=== PATIENT | female | born 1960 | race Caucasian/White ===

== ENCOUNTER 2019-08-29 15:58 | Inpatient (IN) | payer OTHER ==
[~2019-08-29] VITALS: Ht 157.5 cm; Wt 95.1 kg
[2019-08-29] MEDS ORDERED: IV NORMAL SALINE 1,000ML 1,000 ML IV SCH (16:19)
[2019-08-29 17:02] LABS: BASO # 0.2 x10^3/uL (0.0-0.2); BASO % 1 % (0-3); EOS # 0.1 x10^3/uL (0.0-0.7); EOS % 0 % (0-3); HEMATOCRIT 42.7 % (36.0-47.0); HEMOGLOBIN 14.5 g/dL (12.0-15.5); LYMPH # 1.7 x10^3/uL (1.0-4.8); LYMPH % 8 % (24-48); MEAN CORPUSCULAR HEMOGLOBIN 29 pg (25-35); MEAN CORPUSCULAR HGB CONC 34 g/dL (31-37); MEAN CORPUSCULAR VOLUME 87 fL (79-100); MONO # 1.4 x10^3/uL (0.0-1.1); MONO % 6 % (0-9); NEUT # 19.4 x10^3uL (1.8-7.7); NEUT % 85 % (31-73); PLATELET COUNT 354 x10^3/uL (140-400); RED BLOOD COUNT 4.93 x10^6/uL (3.50-5.40); RED CELL DISTRIBUTION WIDTH 15.1 % (11.5-14.5); WHITE BLOOD COUNT 22.7 x10^3/uL (4.0-11.0)
--- NOTE | 2019-08-29 17:05 | RAD ---
Exam: Acute abdominal series INDICATION: Abdominal pain, constipation TECHNIQUE: Frontal view of the chest with upright and supine views of the abdomen Comparisons: None FINDINGS: The cardiomediastinal silhouette and pulmonary vessels are within normal limits. The lung and pleural spaces are clear. Air and stool noted throughout the colon to level the rectum in a nonobstructive bowel gas pattern. No suspicious masses or calcifications. Visualized osseous structures are unremarkable. IMPRESSION: 1. No acute cardiopulmonary process. 2. Nonobstructive bowel gas pattern. Electronically signed by: Macy Moore MD (08/29/2019 5:03 PM) [id number]
--- NOTE | 2019-08-29 17:27 | PHYS DOC ---
Past History Past Medical History: Asthma, Diabetes, Hypertension (JOSEPH LOPEZ DO) Past Medical History: Anxiety, Arthritis, Constipation, Diabetes, Sciatica (JOHAN STREETER MD) Past Surgical History: No Surgical History (JOSEPH LOPEZ DO) Past Surgical History: Cervical Fusion, Hysterectomy (JOHAN STREETER MD) Alcohol Use: None Drug Use: None (JOSEPH LOPEZ DO) General Adult EDM: Chief Complaint: CONTISPATION HPI: HPI: Patient is a 59 year old female who presents for evaluation of left lower abdominal pain. She is concerned she may have been constipated several days ago but then started developing some loose nonbloody stools since about 12 PM today. Patient was moderately uncomfortable on arrival. There is no reported nausea vomiting or fever and chills. Patient did later states she has been on prednisone and has multiple chronic pain episodes as well as a "pinched nerve" in her back (JOSEPH LOPEZ DO) HPI: ".. I ve been so constipated... there is a hard ball down there... It will just not come out... this been going on the last three days.. "..." I bite area is still sore I do not want to even try go the bathroom anymore..." Patient is a 59-year-old female with history of lower abdomen pain, constipation, obstipation, and generalized abdomen distention. Patient does have a history of previous episodes of constipation. Patient has been taking fiber mid meds however has not increased her fluid intake. Patient denies any intake of bad food. Patient denies any history of immunosuppression. Patient denies any recent travel outside the [place] area. Patient normally follows with Dr. Rema Thomas. Pt. recent injury to lower lumbar and was started on some steriods and Tramadol.Lt. leg sciatica. Patient has had previous episodes of constipation but not quite as severe as current presentation. Patient denies any specific ill contacts. Patient denies any history of colitis. (JOHAN STREETER MD) Review of Systems: Review of Systems: Constitutional: Denies fever or chills Eyes: Denies change in visual acuity HENT: Denies nasal congestion or sore throat Respiratory: Denies cough or shortness of breath Cardiovascular: Denies chest pain or edema GI: has abdominal pain, no nausea, vomiting, bloody stools, pt has diarrhea : Denies dysuria Musculoskeletal: chronic back pain, no joint pain Integument: Denies rash Neurologic: Denies headache, focal weakness or sensory changes Endocrine: Denies polyuria or polydipsia Lymphatic: Denies swollen glands Psychiatric: Denies depression or anxiety (JOSEPH LOPEZ DO) Heart Score: Risk Factors: Risk Factors: DM, Current or recent (<one month) smoker, HTN, HLP, family history of CAD, obesity. Risk Scores: Score 0 - 3: 2.5% MACE over next 6 weeks - Discharge Home Score 4 - 6: 20.3% MACE over next 6 weeks - Admit for Clinical Observation Score 7 - 10: 72.7% MACE over next 6 weeks - Early Invasive Strategies (JOSEPH LOPEZ DO) HEART Score for Chest Pain: HEART Score for Chest Pain Response (Comments) Value History Moderately Suspicious 1 ECG Nonspecific Repolarizatio 1 Age >45 - < 65 1 Risk Factors 1 or 2 Risk Factors 1 Troponin < Normal Limit 0 Total 4 Family History: Family History: Noncontributory to presentation (JOHAN STREETER MD) Current Medications: Current Meds: Current Medications Medications (Trade) Dose Ordered Sig/Trinity Start Time Stop Time Status Last Admin Dose Admin Sodium Chloride 1,000 ml @ 1,000 mls/hr Q1H 08/29/19 16:19 08/29/19 17:18 DC 08/29/19 17:09 1,000 MLS/HR (JOSEPH LOPEZ DO) Current Meds: See nursing for home medications (JOHAN STERETER MD) Allergies: Allergies: Allergies Coded Allergies Type Severity Reaction Last Updated Verified morphine Allergy Unknown 08/29/19 Yes (JOSEPH LOPEZ DO) Allergies: Morphine causes itching (JOHAN STREETER MD) Physical Exam: PE: Constitutional: Well developed, well nourished, moderate istress, non-toxic appearance. [] HENT: Normocephalic, atraumatic, bilateral external ears normal, oropharynx moist, no oral exudates. [] Eyes: PERRL, EOMI, conjunctiva normal, no discharge. [] Neck: Normal range of motion, no tenderness, supple. [] Cardiovascular:Heart rate regular rhythm, no murmur [] Lungs & Thorax: Bilateral breath sounds clear to auscultation [] Abdomen: Bowel sounds normal, soft, tender left lower abdomen to palpation, no pulsatile masses. [] Skin: Warm, dry, no erythema, no rash. [] Back: No tenderness, no CVA tenderness. [] Extremities: No tenderness, no cyanosis, ROM intact, no edema. [] Neurologic: Alert and oriented X 3, normal motor function, normal sensory function, no focal deficits noted. [] Psychologic: Affect normal, judgement normal, mood normal. rectal: Tender, patient would not tolerate full finger insertion, brown-colored loose stool noted.[] (JOSEPH LOPEZ DO) PE: Re-exam after shift change. General-appears to be very uncomfortable HEENT-pupils equal reactive to light. Extraocular muscles intact. Wearing glasses. Old scar. Chest-breath sounds equal at apex. Few scattered wheezes. Cardiovascular-tachycardia, PMI slightly to the left. Abdomen-very distended. Lower pelvic pain. Old surgical scars. Rebound to the lower abdomen. Rectal area somewhat inflamed. Has extremely hard impaction. No gross blood. Extremities-arthritic changes. Moves all extremities on request. Does have findings of pain in left leg on straight leg lift. Pain appears to follow the left sciatic nerve. Back.-Muscle spasm on left lumbar muscle groups. No midline tenderness. Does have pain along the left sciatic nerve into the gluteal area. Neuro-patient moves all extremities on request. Has distal sensory. (JOHAN STREETER MD) Current Patient Data: Labs: Laboratory Tests Test 08/29/19 16:40 White Blood Count 22.7 x10^3/uL (4.0-11.0) H Red Blood Count 4.93 x10^6/uL (3.50-5.40) Hemoglobin 14.5 g/dL (12.0-15.5) Hematocrit 42.7 % (36.0-47.0) Mean Corpuscular Volume 87 fL (79-100) Mean Corpuscular Hemoglobin 29 pg (25-35) Mean Corpuscular Hemoglobin Concent 34 g/dL (31-37) Red Cell Distribution Width 15.1 % (11.5-14.5) H Platelet Count 354 x10^3/uL (140-400) Neutrophils (%) (Auto) 85 % (31-73) H Lymphocytes (%) (Auto) 8 % (24-48) L Monocytes (%) (Auto) 6 % (0-9) Eosinophils (%) (Auto) 0 % (0-3) Basophils (%) (Auto) 1 % (0-3) Neutrophils # (Auto) 19.4 x10^3uL (1.8-7.7) H Lymphocytes # (Auto) 1.7 x10^3/uL (1.0-4.8) Monocytes # (Auto) 1.4 x10^3/uL (0.0-1.1) H Eosinophils # (Auto) 0.1 x10^3/uL (0.0-0.7) Basophils # (Auto) 0.2 x10^3/uL (0.0-0.2) Platelet Estimate Pending Vital Signs: Vital Signs Date Time Temp Pulse Resp B/P (MAP) Pulse Ox O2 Delivery O2 Flow Rate FiO2 08/29/19 16:15 97.8 116 20 163/71 (101) 98 Room Air (JOSEPH LOPEZ DO) EKG: EKG: [] (JOSEPH LOPEZ DO) EKG: My interpretation EKG shows a sinus tachycardia at 104 bpm. There is some left axis deviation. There is findings of a fascicular block. No findings of acute STEMI with contralateral changes. (JOHAN STREETER MD) Radiology/Procedures: Radiology/Procedures: [address] [address] IMAGING REPORT Signed PATIENT: VLAD HART ACCOUNT: [id number] : 1960 LOCATION: ER AGE: 59 SEX: F EXAM STATUS: REG ER ORD. PHYSICIAN: JOSEPH LOPEZ DO REASON: abd pain, constipation PROCEDURE: ACUTE ABDOMEN SERIES Exam: Acute abdominal series INDICATION: Abdominal pain, constipation TECHNIQUE: Frontal view of the chest with upright and supine views of the abdomen Comparisons: None FINDINGS: The cardiomediastinal silhouette and pulmonary vessels are within normal limits. The lung and pleural spaces are clear. Air and stool noted throughout the colon to level the rectum in a nonobstructive bowel gas pattern. No suspicious masses or calcifications. Visualized osseous structures are unremarkable. IMPRESSION: 1. No acute cardiopulmonary process. 2. Nonobstructive bowel gas pattern. Electronically signed by: Macy Kessler MD (08/29/2019 5:03 PM) [id number] DICTATED AND SIGNED BY: MACY KESSLER MD DATE: 08/29/19 [id number] CC: KANWAL THOMAS DO; JOSEPH LOPEZ DO ~ [] (JOSEPH LOPEZ DO) Radiology/Procedures: [address] [address] IMAGING REPORT Signed PATIENT: VLAD HART ACCOUNT: [id number] : 1960 LOCATION: ER AGE: 59 SEX: F EXAM STATUS: REG ER ORD. PHYSICIAN: JOSEPH LOPEZ DO REASON: abdominal pain left lower quadrant, luekocytosis PROCEDURE: CT ABD PELV W/ORAL&IV CONTRAST Exam: CT of abdomen and pelvis with contrast INDICATION: Abdominal pain, left lower quadrant, leukocytosis TECHNIQUE: Sequential axial images through the abdomen and pelvis obtained following the administration of 75 mL of Omni 300 IV contrast. Sagittal and coronal reformatted images were reconstructed from the axial data and reviewed. Comparisons: Radiograph same day FINDINGS: Heart size is normal. No pericardial effusion. Visualized lung bases are clear. No pleural effusion. Liver, spleen, pancreas and adrenals are unremarkable. Gallbladder is mildly distended. Kidneys demonstrate symmetric enhancement. No perinephric inflammation or hydronephrosis. No renal or ureteral calculi are identified. Bladder is decompressed not well evaluated. Uterus is absent. No abnormal adnexal mass. Large amount stool noted at the rectum. Diverticulosis is seen in the sigmoid colon without adjacent wall thickening and inflammatory changes. Remainder of the large and small bowel are unremarkable. Appendix is not identified. No free intra-abdominal air or fluid. No obstruction. Abdominal aorta has a normal course and caliber. Abdominal vasculature is patent. No enlarged abdominal lymph nodes are identified. No suspicious osseous lesions or acute fractures. IMPRESSION: 1. Diverticulosis of the sigmoid colon without evidence of acute diverticulitis. 2. Moderate amount stool at the rectum. 3. Gallbladder is mildly distended without adjacent inflammatory changes. Correlate with symptomatology to determine the need for further evaluation with ultrasound. Exposure: One or more of the following in the visualized dose reduction techniques were utilized for this examination: 1. Automated exposure control 2. Adjustment of the MA and/or KV according to patient size 3. Use of iterative of reconstructive technique Electronically signed by: Macy Kessler MD (08/29/2019 8:12 PM) [id number] DICTATED AND SIGNED BY: MACY KESSLER MD DATE: 08/29/192011 CC: JOHAN STREETER MD; KANWAL THOMAS DO; JOSEPH LOPEZ DO ~ [place] [address] IMAGING REPORT Signed PATIENT: VLAD HART ACCOUNT: [id number] : 1960 LOCATION: ER AGE: 59 SEX: F EXAM STATUS: REG ER ORD. PHYSICIAN: JOSEPH LOPEZ DO REASON: abdominal pain left lower quadrant, luekocytosis PROCEDURE: CT ABD PELV W/ORAL&IV CONTRAST Exam: CT of abdomen and pelvis with contrast INDICATION: Abdominal pain, left lower quadrant, leukocytosis TECHNIQUE: Sequential axial images through the abdomen and pelvis obtained following the administration of 75 mL of Omni 300 IV contrast. Sagittal and coronal reformatted images were reconstructed from the axial data and reviewed. Comparisons: Radiograph same day FINDINGS: Heart size is normal. No pericardial effusion. Visualized lung bases are clear. No pleural effusion. Liver, spleen, pancreas and adrenals are unremarkable. Gallbladder is mildly distended. Kidneys demonstrate symmetric enhancement. No perinephric inflammation or hydronephrosis. No renal or ureteral calculi are identified. Bladder is decompressed not well evaluated. Uterus is absent. No abnormal adnexal mass. Large amount stool noted at the rectum. Diverticulosis is seen in the sigmoid colon without adjacent wall thickening and inflammatory changes. Remainder of the large and small bowel are unremarkable. Appendix is not identified. No free intra-abdominal air or fluid. No obstruction. Abdominal aorta has a normal course and caliber. Abdominal vasculature is patent. No enlarged abdominal lymph nodes are identified. No suspicious osseous lesions or acute fractures. IMPRESSION: 1. Diverticulosis of the sigmoid colon without evidence of acute diverticulitis. 2. Moderate amount stool at the rectum. 3. Gallbladder is mildly distended without adjacent inflammatory changes. Correlate with symptomatology to determine the need for further evaluation with ultrasound. Exposure: One or more of the following in the visualized dose reduction techniques were utilized for this examination: 1. Automated exposure control 2. Adjustment of the MA and/or KV according to patient size 3. Use of iterative of reconstructive technique Electronically signed by: Macy Kessler MD (08/29/2019 8:12 PM) [id number] DICTATED AND SIGNED BY: MAYC KESSLER MD DATE: 08/29/192011 CC: JOHAN STREETER MD; KANWAL THOMAS DO; JOSEPH LOPEZ DO ~ (JOHAN STREETER MD) Course & Med Decision Making: Course & Med Decision Making Pertinent Labs and Imaging studies reviewed. (See chart for details) [] (JOSEPH LOPEZ DO) Course & Med Decision Making Procedure note-manual dis impaction of very hard impacted stool in rectal area. Applied viscous lidocaine to the rectal area and gently broke up stool with use of finger. Large amount of hard impacted balls of stool removed. Placed to glycerin suppositories. Discussed presentation, testing and treatment plan with . Will admit on a clear fluid diet. Start GoLYTELY prep until stooling clear. Suspect the elevated leukocytes and glucose may be due to the recent course of steroids. Will cover with antibiotics at this time. Do serial lactic acids due to the elevated lactic acid on initial draw. Serial glucose checks. Will obtain a CT of the lumbar sacral area in the morning when better hydrated. To evaluate left lumbar sciatic complaints. See Dr. Lopez chart for details. Impression: 1. Abdomen pain 2. Constipation obstipation 3. Elevated leukocytosis 22.7 with 85 segs 4. Elevated lactic acid 2.8 5. Diabetes glucose 160. 6. Sciatica-Neuropathy > Lt. (JOHAN STREETER MD) Dragon Disclaimer: Jamin Disclaimer: This electronic medical record was generated, in whole or in part, using a voice recognition dictation system. 1800 Care of patient turned over to Dr. Martínez at shift change. CT scan abd/pelvis ordered for further assessment. Patient's chemistries had to be redrawn and those results are pending. In light of patient's leukocytosis, blood cultures and lactic acid were added (JOSEPH LOPEZ DO) Departure Departure: Impression: Primary Impression: Left lower quadrant abdominal pain Additional Impressions: Leukocytosis Diverticulosis Disposition: HOME/RESIDENCE PRIOR TO ADM Condition: STABLE Referrals: KANWAL THOMAS DO (PCP) Scripts Metronidazole (METRONIDAZOLE) 250 Mg Tablet 1 TAB PO TID for colitis for 7 Days, #21 TAB Prov: SUSAN SAMUEL MD 08/30/19 Levofloxacin (LEVAQUIN) 500 Mg Tablet 1 TAB PO DAILY for colitis for 7 Days, #7 TAB 0 Refills Prov: SUSAN SAMUEL MD 08/30/19 Justification of Admission: Justification of Admission: Justification of Admission Dx: Yes Comments: Severe constipation and obstipation with elevated leukocytes and segs Out pt. Tx failure with OTC meds for abd. pain and constipation (JOHAN STREETER MD) Dragon Disclaimer This chart was dictated in whole or in part using Voice Recognition software in a busy, high-work load, and often noisy Emergency Department environment. It may contain unintended and wholly unrecognized errors or omissions. (JOHAN STREETER MD) Dragon Disclaimer This chart was dictated in whole or in part using Voice Recognition software in a busy, high-work load, and often noisy Emergency Department environment. It may contain unintended and wholly unrecognized errors or omissions. (JOSEPH LOPEZ DO) Dragon Disclaimer This chart was dictated in whole or in part using Voice Recognition software in a busy, high-work load, and often noisy Emergency Department environment. It may contain unintended and wholly unrecognized errors or omissions. (JOHAN STREETER MD) Dragon Disclaimer This chart was dictated in whole or in part using Voice Recognition software in a busy, high-work load, and often noisy Emergency Department environment. It may contain unintended and wholly unrecognized errors or omissions. (JOSEPH LOPEZ DO) Dragon Disclaimer This chart was dictated in whole or in part using Voice Recognition software in a busy, high-work load, and often noisy Emergency Department environment. It may contain unintended and wholly unrecognized errors or omissions. (JOHAN STREETER MD) Dragon Disclaimer This chart was dictated in whole or in part using Voice Recognition software in a busy, high-work load, and often noisy Emergency Department environment. It may contain unintended and wholly unrecognized errors or omissions. (JOSEPH LOPEZ DO) JOSEPH LOPEZ DO Aug 29, 2019 17:27 JOHAN STREETER MD Aug 29, 2019 21:19
[2019-08-29 17:33] LABS: % BANDS 3 % (0-9); % LYMPHS 7 % (24-48); % MONOS 5 % (0-10); % SEGS 85 % (35-66)
[2019-08-29 17:34] LABS: PLT ESTIMATE ADEQUATE (ADEQUATE)
[2019-08-29 18:17] LABS: CALCIUM 8.4 mg/dL (8.5-10.1); GFR 56.4; POTASSIUM 3.6 mmol/L (3.5-5.1)
[2019-08-29 18:23] LABS: ALBUMIN 3.1 g/dL (3.4-5.0); ALBUMIN/GLOBULIN RATIO 0.8 (1.0-1.7); TOTAL BILIRUBIN 0.6 mg/dL (0.2-1.0); TOTAL PROTEIN 7.1 g/dL (6.4-8.2)
[2019-08-29] MEDS ORDERED: CONTRAST GIVEN. MC PRN (18:30)
[2019-08-29] MEDS ORDERED: IOHEXOL 300 MG/ML 75 ML VIAL. IV ONE (18:30)
[2019-08-29] MEDS ORDERED: IOHEXOL 240 MG/ML 50ML VIAL. PO ONE (18:45)
[2019-08-29 18:48] LABS: FECAL OB PT POSITIVE (NEG)
[2019-08-29 19:33] LABS: BACTERIA,URINE FEW /HPF (0-FEW); BILIRUBIN,URINE NEG (NEG); CLARITY,URINE HAZY; COLOR,URINE YELLOW; GLUCOSE,URINE NEG (NEG); NITRITE,URINE NEG (NEG); RBC,URINE OCC /HPF (0-2); SQUAMOUS EPITHELIAL CELL,UR MOD /LPF; WBC,URINE OCC /HPF (0-4)
[2019-08-29] MEDS ORDERED: IV RINGERS SOLUTION,LACTATED 1,000 ML IV STA (19:35)
[2019-08-29] MEDS ORDERED: cefTRIAXone SODIUM 1 GM VIAL ONE (19:46)
[2019-08-29] MEDS ORDERED: IV NORMAL SALINE 50ML 50 ML ONE (19:46)
--- NOTE | 2019-08-29 20:15 | RAD ---
Exam: CT of abdomen and pelvis with contrast INDICATION: Abdominal pain, left lower quadrant, leukocytosis TECHNIQUE: Sequential axial images through the abdomen and pelvis obtained following the administration of 75 mL of Omni 300 IV contrast. Sagittal and coronal reformatted images were reconstructed from the axial data and reviewed. Comparisons: Radiograph same day FINDINGS: Heart size is normal. No pericardial effusion. Visualized lung bases are clear. No pleural effusion. Liver, spleen, pancreas and adrenals are unremarkable. Gallbladder is mildly distended. Kidneys demonstrate symmetric enhancement. No perinephric inflammation or hydronephrosis. No renal or ureteral calculi are identified. Bladder is decompressed not well evaluated. Uterus is absent. No abnormal adnexal mass. Large amount stool noted at the rectum. Diverticulosis is seen in the sigmoid colon without adjacent wall thickening and inflammatory changes. Remainder of the large and small bowel are unremarkable. Appendix is not identified. No free intra-abdominal air or fluid. No obstruction. Abdominal aorta has a normal course and caliber. Abdominal vasculature is patent. No enlarged abdominal lymph nodes are identified. No suspicious osseous lesions or acute fractures. IMPRESSION: 1. Diverticulosis of the sigmoid colon without evidence of acute diverticulitis. 2. Moderate amount stool at the rectum. 3. Gallbladder is mildly distended without adjacent inflammatory changes. Correlate with symptomatology to determine the need for further evaluation with ultrasound. Exposure: One or more of the following in the visualized dose reduction techniques were utilized for this examination: 1. Automated exposure control 2. Adjustment of the MA and/or KV according to patient size 3. Use of iterative of reconstructive technique Electronically signed by: Macy Moore MD (08/29/2019 8:12 PM) [id number]
[2019-08-29] MEDS ORDERED: MAGNESIUM HYDROXIDE 2,400 MG/30 ML ORAL.SUSP. PO ONE (22:30)
[2019-08-29] MEDS ORDERED: LIDOCAINE 5% TOPICAL OINTMENT 35GM TUBE. TP ONE (22:30)
[2019-08-29] MEDS ORDERED: GLYCERIN ADULT 1 SUPP.RECT. ONE (22:31)
--- NOTE | 2019-08-29 22:50 | EKG ---
[address] [address] Test Date: 2019-08-29 Test Time: 22:45:24 Pat Name: VLAD HART Department: Room: Gender: F Key Worker: : 1960 Requested By: JOHAN STREETER Order Number: [id number] Reading MD: Measurements Intervals [place] Rate: 104 P: 54 [place]: 164 QRS: -51 QRSD: 92 T: 18 QT: 356 QTc: 468 Interpretive Statements SINUS TACHYCARDIA ABNORMAL LEFT AXIS DEVIATION R-S TRANSITION ZONE IN V LEADS DISPLACED TO THE LEFT LEFT ANTERIOR FASCICULAR BLOCK ABNORMAL ECG RI6.02 No previous ECG available for comparison
[2019-08-29] MEDS ORDERED: ACETAMINOPHEN 325 MG TABLET PO PRN (23:00)
[2019-08-29] MEDS ORDERED: DIBUCAINE RECTAL OINTMENT 28GM TUBE. RC PRN (23:00)
[2019-08-29] MEDS ORDERED: ONDANSETRON PF 4 MG/2 ML VIAL. IVP PRN (23:00)
[2019-08-29] MEDS ORDERED: GLYCERIN ADULT 1 SUPP.RECT. PR ONE (23:00)
[2019-08-29] MEDS ORDERED: PEG 3350/NA SULF,BICARB,CL/KCL 4,000 ML SOLUTION. PO ONE (23:30)
[2019-08-29] MEDS ORDERED: methylPREDNISolone SOD SUCC PF 125 MG/2 ML VIAL. IV ONE (23:30)
--- NOTE | 2019-08-29 23:54 | NUR ---
The patient, VLAD HART, 59 y/o, F admitted by SUSAN SAMUEL MD, was given written information regarding hospital policies, unit procedures and contact persons. Valuables were checked and logged. Call light at bedside. Will continue to monitor.
[2019-08-30] MEDS: IV RINGERS SOLUTION,LACTATED 1,000 ML IV SCH ×4 (00:55→12:13)
[2019-08-30 01:51] VITALS: BP 143/61
[2019-08-30] MEDS ORDERED: INSU100V8 SQ (02:22)
[2019-08-30] MEDS ORDERED: GABA-586 PO (02:22)
[2019-08-30] MEDS ORDERED: SIMV5TAB14 PO (02:22)
[2019-08-30] MEDS ORDERED: ASPI-630 PO (02:22)
[2019-08-30] MEDS ORDERED: LEVO125T5 PO (02:22)
[2019-08-30] MEDS ORDERED: LOSA1TAB22 PO (02:22)
[2019-08-30] MEDS ORDERED: CETI10TA16 PO (02:22)
[2019-08-30] MEDS ORDERED: INSU100I17 SQ (02:22)
[2019-08-30] MEDS ORDERED: SITA100T PO (02:22)
[2019-08-30] MEDS ORDERED: VITA1TAB31 PO (02:22)
[2019-08-30] MEDS ORDERED: IPRATRPIUM/ALBUTEROL 0.5/2.5MG 3 ML NEBU. ONE (04:54)
[2019-08-30 06:05] VITALS: BP 138/66
--- NOTE | 2019-08-30 06:53 | NUR ---
Pt. admitted from ED to Covid unit with diagnosis of abdominal pain and constipation. Temp. 99.0. No home RT meds or history. No CXR. Denies cough or SOA. SPo2 96-97% on RA. Pt. ordered on Duoneb txs QID. Requesting this order be cancelled. Thank you.
--- NOTE | 2019-08-30 06:54 | NUR ---
Pt slept most of the morning. Drank two cups of Naheed. Encouraged to drink it more today. Will continue to monitor.
[2019-08-30] MEDS ORDERED: IPRATRPIUM/ALBUTEROL 0.5/2.5MG 3 ML NEBU. NEB SCH (08:00)
[2019-08-30 08:08] LABS: BASO # 0.1 x10^3/uL (0.0-0.2); BASO % 1 % (0-3); CALCIUM 8.2 mg/dL (8.5-10.1); CREATININE 0.9 mg/dL (0.6-1.0); EOS % 0 % (0-3); GFR 63.7; HEMATOCRIT 38.8 % (36.0-47.0); HEMOGLOBIN 13.1 g/dL (12.0-15.5); LYMPH # 0.7 x10^3/uL (1.0-4.8); LYMPH % 5 % (24-48); MEAN CORPUSCULAR HEMOGLOBIN 29 pg (25-35); MEAN CORPUSCULAR HGB CONC 34 g/dL (31-37); MEAN CORPUSCULAR VOLUME 86 fL (79-100); MONO # 0.1 x10^3/uL (0.0-1.1); MONO % 1 % (0-9); NEUT # 12.3 x10^3uL (1.8-7.7); NEUT % 93 % (31-73); PLATELET COUNT 269 x10^3/uL (140-400); POTASSIUM 3.8 mmol/L (3.5-5.1); RED CELL DISTRIBUTION WIDTH 14.7 % (11.5-14.5); WHITE BLOOD COUNT 13.2 x10^3/uL (4.0-11.0)
--- NOTE | 2019-08-30 08:12 | RAD ---
Examination: CT LUMBAR SPINE WO CONTRAST History: Reason: Sciatica, Constipation / Spl. Instructions: / History: Comparison/Correlation: 08/29/2019 CT abdomen and pelvis without contrast Findings: Axial images of the lumbar spine were obtained without contrast with sagittal and coronal reformatted images were provided. The partially visualized lung bases are clear. Vertebral body heights are adequate. T11-12: Unremarkable T12-L1: Minimal retrolisthesis of T12 with relation to L1. Minimal concentric disc bulge. No nerve root effacement. L1-2: Unremarkable L2-3: Vacuum phenomenon with mild disc space narrowing. Concentric disc bulge left neural foraminal narrowing due to bony encroachment. Borderline nerve root effacement. L3-4: Concentric disc bulge. Mild disc space narrowing. Effacement of the thecal sac. No nerve root effacement. L4-5: Moderate to severe disc space narrowing with vacuum phenomenon. Severe bilateral neural foraminal narrowing due to bony encroachment. Probable bilateral nerve root compression. Minimal retrolisthesis of L4-L5. L5-S1: Sacralization of L5 is present. No nerve root effacement. Expected courses of the sciatic nerves are unremarkable. Incidental note is made of sigmoid diverticulosis. Oral contrast is seen within these ascending colon. I density of the urine within the collecting systems related to contrast administration on the previously noted. Impression: Severe bilateral neural foraminal narrowing due to bony encroachment at L4-5 with probable bilateral nerve root compression. Minimal retrolisthesis of L4 in relation to L5. Other degenerative changes also present and are of a lesser severity. Sacralization of L5. PQRS Compliance Statement: One or more of the following individualized dose reduction techniques were utilized for this examination: 1. Automated exposure control 2. Adjustment of the mA and/or kV according to patient size 3. Use of iterative reconstruction technique Electronically signed by: Peewee Mendoza MD (08/30/2019 8:10 AM) [id number]
[2019-08-30 11:02] VITALS: BP 144/72
[2019-08-30 15:04] VITALS: BP 146/65
[2019-08-30] MEDS ORDERED: METR-111 PO (17:28)
[2019-08-30] MEDS ORDERED: LEVO500T59 PO (17:28)
--- NOTE | 2019-08-30 17:47 | HP ---
ADMIT DATE: 08/29/2019 HISTORY OF PRESENT ILLNESS: The patient is a 59-year-old female patient who came to the Emergency Room for evaluation of left lower abdominal pain. She has been constipated for several days and started developing some loose nonbloody stools since about 12:00 p.m. She was moderately uncomfortable on arrival. There is no reported nausea, vomiting, fever or chills. The patient did later say she has been on prednisone, has multiple chronic pain episodes as well as pinched nerve. She apparently has left sided sciatica and that she was treated with a Medrol Dosepak, Flexeril, tramadol and has also spinal epidural steroid injection. She said she has tried to go to the bathroom and has a bowel movement for almost 3 hours without improvement and therefore, she came to the Emergency Room where she apparently underwent digital disimpaction and was admitted and started on GoLYTELY. She apparently has had similar episodes of constipation before, but not quite as severe as current presentation. PAST MEDICAL HISTORY: Significant for bronchial asthma, type 2 diabetes, hypertension, degenerative disk disease and sciatica, chronic constipation and osteoarthritis as well as anxiety. PAST SURGICAL HISTORY: Significant for cervical spine fusion and hysterectomy. ALLERGIES: SHE IS ALLERGIC TO MORPHINE. MEDICATIONS: She is currently on following medications: She is on cetirizine 10 mg once a day, simvastatin 5 mg at bedtime, losartan/hydrochlorothiazide 100/25 one tablet once a day, aspirin 81 mg once a day, gabapentin 300 mg 3 times a day; sitagliptin phosphate, Januvia 100 mg once a day. She is on NovoLog FlexPen 18 units before breakfast and lunch. She is on Lantus insulin 72 units twice a day, levothyroxine 125 mcg once a day, vitamin D with K also 1 tablet once a day. FAMILY HISTORY: Noncontributory. SOCIAL HISTORY: She is . She apparently does not smoke, drink alcohol or use any recreational drugs. REVIEW OF SYSTEMS: As per history of present illness. PHYSICAL EXAMINATION: GENERAL: On arrival to the Emergency Room, the patient was somewhat distressed tachypneic, tachycardic. There is no pallor, jaundice, cyanosis, or thyromegaly. No jugular venous distension. No limb edema. VITAL SIGNS: Her heart rate was 116, blood pressure was 163/71, temperature was 97.8, respiratory rate 20, and oxygen saturation was 98%. HEAD, EYES, EARS, NOSE AND THROAT: Normocephalic, atraumatic. NECK: Supple. HEART: Showed normal first and second heart sounds. No gallop, rub or murmur. CHEST: Clear to auscultation. No crepitation or rhonchi. ABDOMEN: Distended, soft with tenderness mostly in the left lower quadrant. No pulsatile masses. NEUROLOGIC: She was alert, oriented x 3 with normal motor and sensory function, no obvious focal deficit. EXTREMITIES: Showed no clubbing, cyanosis or edema. PSYCHOLOGICAL: The patient affect, judgment and mood normal. She apparently had rectal exam. LABORATORY DATA: Lab work done showed that her white cell count was elevated 22,700, hemoglobin 14.5, hematocrit 42, MCV 87 and platelet count 354,000. Her chemistry showed serum sodium was 136, potassium 3.6, chloride 100, bicarbonate 28, anion gap of 8, BUN 25, creatinine 1, estimated GFR was 56 mL per minute. Her glucose 166, lactic acid was slightly high at 2.8, calcium was 8.4. Total bilirubin, AST, ALT, alkaline phosphatase were normal. Total protein was 7.1, albumin was 3.1. Serum lipase was normal at 46. Her urinalysis was essentially unremarkable. Her stool for occult blood was positive. Her acute abdomen series showed no acute cardiopulmonary process, nonobstructive bowel gas pattern. CT scan of the abdomen and pelvis showed that she has diverticulosis of the sigmoid colon without evidence of acute diverticulitis, moderate amount of stool in the rectum. Gallbladder is mildly distended without adjacent inflammatory changes, correlate with symptomatology to determine the need for further evaluation and treatment. ASSESSMENT AND PLAN: The patient was admitted. She apparently has had digital disimpaction and has had glycerin suppositories and was admitted, continued on IV fluid, IV antibiotic and GoLYTELY. SUSAN SAMUEL MD DR: ROSALIO/britton JOB#: [id number] / [id number]
--- NOTE | 2019-08-30 18:41 | DS ---
DATE OF DISCHARGE: 08/30/2019 HOSPITAL COURSE: The patient is a 59-year-old female patient who was admitted yesterday with severe obstipation, constipation, left lower quadrant pain. She did have also marked leukocytosis, white cell count was 22,700. Also, she was mildly dehydrated and she was basically has had digital disimpaction, was started on GoLYTELY and IV fluid as well as IV antibiotic and she did actually very well. This afternoon, she has had no more abdominal pain, had had numerous bowel movements last night and today and she feels fine. I did not see any obvious source of infection or the cause of her leukocytosis. Her steroids were given to her about 2 weeks ago in the form of Medrol Dosepak and also spinal epidural steroid injection. Her urinalysis was essentially unremarkable. Her acute abdomen series showed that there is no acute cardiopulmonary process and the CT scan of the abdomen showed diverticulosis, but without any diverticulitis, but she has also severe constipation. Her gallbladder is mildly distended without adjacent inflammatory changes. Her pain is mostly in the left lower quadrant rather than the right upper quadrant. Her lumbar spine CT scan without contrast showed that she has severe bilateral neural foramina narrowing due to bony encroachment at L4-L5 with probable lateral nerve root compression. Minimal retrolisthesis of L4 in relation to L5. The patient is feeling well and she wanted to go home. I discharged her explaining to her that I really have no obvious source of infection and reason for while cells markedly elevated. She has had urine and blood culture, both of them are still pending at the time of this dictation and therefore, I decided to discharge her on the course of antibiotic in the form of Levaquin and metronidazole and advised her to call the hospital on Saturday. Hopefully, by that time, we have the results of her urine or blood culture and we can make adjustment of her antibiotic if need be. PHYSICAL EXAMINATION: GENERAL: When I saw her this afternoon, she was sitting on the edge of the bed comfortably in no apparent distress. No pallor, jaundice, cyanosis or thyromegaly. No jugular venous distention. No limb edema. VITAL SIGNS: Her heart rate was 103, blood pressure was 146/65, temperature was 98.3, respiratory rate was 18 and oxygen saturation was 95%. HEAD, EYES, EARS, NOSE AND THROAT: Showed normocephalic, atraumatic. NECK: Supple. HEART: Showed normal first and second heart sounds. No gallop, rub or murmur. CHEST: Clear to auscultation. No crepitation or rhonchi. ABDOMEN: Distended, soft, nontender. No guarding or rigidity. No organomegaly. Old hernial orifice intact. Bowel sounds normal. NEUROLOGIC: She was awake, alert, responding appropriately. All cranial nerves intact. EXTREMITIES: She moves extremities without difficulty. She ambulates without assistance or assistive devices. Her intake over the last 24 hours and output were incompletely recorded. LABORATORY DATA: Her lab work this morning showed a white cell count is down to 13,200, hemoglobin 13, hematocrit 39, MCV 86 and platelet count 269,000. Her chemistry this morning showed a serum sodium 140, potassium 3.8, chloride 104, bicarbonate 26, anion gap of 10, BUN 16, creatinine 0.9, estimated GFR was 64. Her blood sugar was 18. Lactic acid is down to 2 and calcium was 8.2. Urinalysis essentially unremarkable. Her stool for occult blood was positive. DISCHARGE MEDICATIONS: She was discharged home to continue on Levaquin 500 mg once a day for 7 days and Flagyl 250 mg 3 times a day. Should continue on aspirin 81 mg once a day, cetirizine 10 mg once a day, gabapentin 300 mg 3 times a day. She is on NovoLog FlexPen insulin 18 units before breakfast and lunch. She is on Lantus insulin 72 units twice a day, levothyroxine sodium 125 mcg once a day, losartan/hydrochlorothiazide 100/25 mg 1 tablet once a day, simvastatin 5 mg at bedtime, sitagliptin phosphate, Januvia 100 mg once a day, vitamin D one tablet once a day. FINAL DISCHARGE DIAGNOSES: Severe constipation, obstipation, resolved by digital disimpaction as well as treatment with GoLYTELY. Other medical problems include type 2 diabetes mellitus, hypertension, bronchial asthma as well as hypothyroidism. SUSAN SAMUEL MD DR: ROSALIO/britton JOB#: [id number] / [id number]
[2019-08-30] MEDS ORDERED: LACTOBACILLUS RHAMNOSUS GG 1 CAPSULE. PO SCH (21:00)
[2019-08-30] MEDS ORDERED: GABAPENTIN 300 MG CAPSULE. PO SCH (21:00)
[2019-08-30] MEDS ORDERED: INSULIN GLARGINE SYRINGE. SQ SCH (21:00)
[2019-08-30] MEDS ORDERED: SIMVASTATIN 10 MG TABLET PO SCH (21:00)
[2019-08-31] MEDS ORDERED: LEVOTHYROXINE 125 MCG TABLET PO SCH (06:00)
[2019-08-31] MEDS ORDERED: INSULIN LISPRO 300 UNITS/3 ML VIAL. SQ SCH (07:30)
[2019-08-31] MEDS ORDERED: INSULIN ASPART 18 UNIT SQ SCH (07:30)
[2019-08-31] MEDS ORDERED: ASPIRIN CHEWABLE 81 MG TABLET. PO SCH (09:00)
[2019-08-31] MEDS ORDERED: LINAGLIPTIN 5 MG TABLET PO SCH (09:00)
[2019-08-31] MEDS ORDERED: CETIRIZINE HCL 10 MG TABLET PO SCH (09:00)
[2019-08-31] MEDS ORDERED: hydroCHLOROthiazide 25 MG TABLET PO SCH (09:00)
[2019-08-31] MEDS ORDERED: NON FORMULARY ITEM (Vitamin D3/Vitamin K2 (D3 + K2 Dots 1,000 Units Tab) 1 TAB) PO SCH (09:00)
[2019-08-31] MEDS ORDERED: NON FORMULARY ITEM (Losartan/Hydrochlorothiazide (Losartan-Hctz 100-25 Mg Tab) 1 TAB) PO SCH (09:00)
[2019-08-31] MEDS ORDERED: LOSARTAN 50 MG TABLET. PO SCH (09:00)
== END 2019-08-30 18:04 | disposition home or self-care (01) | DRG 392 ==
LOC: ER 15:58 → 1 SOUTH 20:28
PROVIDERS: ADMIT Internal Medicine; ATTEND Internal Medicine
DX: K59.00 Constipation, unspecified (principal); D72.829 Elevated white blood cell count, unspecified; E03.9 Hypothyroidism, unspecified; E11.41 Type 2 diabetes mellitus with diabetic mononeuropathy; E86.0 Dehydration; G89.29 Other chronic pain; I10 Essential (primary) hypertension; J45.909 Unspecified asthma, uncomplicated; M19.90 Unspecified osteoarthritis, unspecified site; K57.30 Diverticulosis of large intestine without perforation or abscess without bleeding; M54.32 Sciatica, left side; Z90.710 Acquired absence of both cervix and uterus; Z98.1 Arthrodesis status; F41.9 Anxiety disorder, unspecified; K59.09 Other constipation; Z88.8 Allergy status to other drugs, medicaments and biological substances; Z79.899 Other long term (current) drug therapy
CPT/HCPCS: 36415; 72131; 74022; 74177; 80048; 80053; 81001; 82274; 82947; 83605; 83690; 85007; 85025; 87040; 87086; 93005; 96361; 96365; 96375; 96376; J0696; J2930; J3010; J3490; J7120; Q9966; Q9967; 99285-25; J7030

== ENCOUNTER 2020-07-26 14:57 | Emergency (ER) | payer OTHER ==
[~2020-07-26] VITALS: Ht 157.5 cm; Wt 95.1 kg
[2020-07-26 14:57] VITALS: BP 165/84
[~2020-07-26 14:57] MED LIST: ASPI-630 PO; CETI10TA16 PO; GABA-586 PO; INSU100I17 SQ; INSU100V8 SQ; LEVO125T5 PO; LEVO500T59 PO; LOSA1TAB22 PO; METR-111 PO; SIMV5TAB14 PO; SITA100T PO; VITA1TAB31 PO
--- NOTE | 2020-07-26 14:59 | PHYS DOC ---
Past History Past Medical History: Anxiety, Arthritis, Constipation, Diabetes, Sciatica Past Surgical History: Cervical Fusion, Hysterectomy Alcohol Use: None Drug Use: None Adult General Chief Complaint Chief Complaint: DIZZY/LIGHT HEADED HPI HPI Patient is a 60-year-old female presenting from primary care physician office via EMS for palpitations. Reports having new history of this, has suffered x3 episodes in last x1 month without any known inciting event, ingestion or exposure. Nothing known makes better or worse. Patient has no pain during episodes just reports it feels like her heart is fluttering and abnormal. Reports initial episode was approximately 1 month ago, she experienced an episode on July 13, and most recent episode was this past Saturday. Patient reports during episodes having generalized feelings of anxiety and that her heart occasionally skips a beat. These last less than 2 hours in duration and have all resolved spontaneously without intervention. She has checked her blood pressure and heart rate during episodes with no concerning variance, admits her heart rate averages approximately 60 to 70 bpm during set episodes but "I feel that it is not normal whenever I was timing it with my pulse in my arm". She was able to be seen by her primary care physician this morning and was evaluated. An EKG was performed that showed no ACS, no STEMI. Nonetheless, given patient's history of iof-apzymxk-pyumkeroi type 2 diabetes, hypertension, hypothyroidism etc., joint decision made to transfer patient to our ER for evaluation. On arrival, patient has no complaints, she is asymptomatic, just admits she is anxious about what is causing her heart to be abnormal Review of Systems Review of Systems Fourteen body systems of review of systems have been reviewed. See HPI for pertinent positives and negative responses, other gomez all other systems are negative, non-pertinent or non-contributory Allergies Allergies Allergies Coded Allergies Type Severity Reaction Last Updated Verified morphine Allergy Unknown 08/29/19 Yes Physical Exam Physical Exam Constitutional: Well developed, well nourished, no acute distress, non-toxic appearance. HENT: Normocephalic, atraumatic, bilateral external ears normal, oropharynx moist, no oral exudates, nose normal. Eyes: PERRLA, EOMI, conjunctiva normal, no discharge. Neck: Normal range of motion, no tenderness, supple, no stridor. Cardiovascular: Heart rate regular, sinus rhythm, no murmurs rubs or gallops Lungs & Thorax: Bilateral breath sounds clear to auscultation Abdomen: Bowel sounds normal, soft, no tenderness, no masses, no pulsatile m asses. Nonsurgical abdomen, no peritoneal signs Skin: Warm, dry, no erythema, no rash. Back: No tenderness, no CVA tenderness. Extremities: No tenderness, no cyanosis, no clubbing, ROM intact, no edema. Neurologic: Alert and oriented X 3, grossly normal motor & sensory function, no focal deficits noted. Psychologic: Anxious affect and mood Current Patient Data Vital Signs Vital Signs Date Time Temp Pulse Resp B/P (MAP) Pulse Ox O2 Delivery O2 Flow Rate FiO2 07/26/20 14:57 97.7 84 18 165/84 (111) 97 Room Air Vital Signs Date Time Temp Pulse Resp B/P (MAP) Pulse Ox O2 Delivery O2 Flow Rate FiO2 07/26/20 14:57 97.7 84 18 165/84 (111) 97 Room Air Lab Results Laboratory Tests Test 07/26/20 15:00 White Blood Count 7.8 x10^3/uL Red Blood Count 4.37 x10^6/uL Hemoglobin 12.7 g/dL Hematocrit 37.7 % Mean Corpuscular Volume 86 fL Mean Corpuscular Hemoglobin 29 pg Mean Corpuscular Hemoglobin Concent 34 g/dL Red Cell Distribution Width 15.1 % Platelet Count 257 x10^3/uL Neutrophils (%) (Auto) 72 % Lymphocytes (%) (Auto) 18 % Monocytes (%) (Auto) 7 % Eosinophils (%) (Auto) 2 % Basophils (%) (Auto) 1 % Neutrophils # (Auto) 5.7 x10^3uL Lymphocytes # (Auto) 1.4 x10^3/uL Monocytes # (Auto) 0.5 x10^3/uL Eosinophils # (Auto) 0.1 x10^3/uL Basophils # (Auto) 0.0 x10^3/uL Sodium Level 144 mmol/L Potassium Level 4.0 mmol/L Chloride Level 107 mmol/L Carbon Dioxide Level 29 mmol/L Anion Gap 8 Blood Urea Nitrogen 19 mg/dL Creatinine 1.0 mg/dL Estimated GFR (Cockcroft-Gault) 56.2 BUN/Creatinine Ratio 19 Glucose Level 93 mg/dL Calcium Level 8.9 mg/dL Magnesium Level 2.1 mg/dL Total Bilirubin 0.3 mg/dL Aspartate Amino Transf (AST/SGOT) 17 U/L Alanine Aminotransferase (ALT/SGPT) 26 U/L Alkaline Phosphatase 77 U/L Troponin I Quantitative < 0.017 ng/mL JN-Svx-[id number]-Type Natriuretic Peptide 535 pg/mL Total Protein 7.4 g/dL Albumin 3.6 g/dL Albumin/Globulin Ratio 0.9 EKG EKG EKG ordered and interpreted by myself 1510 hrs. as sinus rhythm at 95 bpm, unremarkable intervals, left axis deviation, T wave inversions noted in lead aVL, no STEMI Repeat EKG ordered and interpreted by myself 1625 hrs. as sinus rhythm at 79 bpm, unremarkable intervals, left axis deviation, T wave inversions in lead aVL, no STEMI Prior EKG obtained at [facility] at 1349 hrs. and reviewed by myself on ER arrival as sinus rhythm at 97 bpm, unremarkable intervals, left axis deviation, T wave inversions in lead aVL, no STEMI Radiology/Procedures Radiology/Procedures XR CHEST 1V 07/26/2020 3:08 PM INDICATION: Palpitations COMPARISON: None available TECHNIQUE: Portable frontal view of the chest is provided. FINDINGS: The cardiomediastinal silhouette is within normal limits. Lungs are clear. There are no significant pleural effusions. There is no pulmonary vascular congestion. No pneumothorax. No suspicious osseous abnormality. Anterior cervical discectomy and fusion hardware identified within the lower cervical spine. IMPRESSION: There is no acute cardiopulmonary process. Electronically signed by: Natasha Lunsford MD (07/26/2020 3:22 PM) [id number] Heart Score C/O Chest Pain: Yes HEART Score for Chest Pain: HEART Score for Chest Pain Response (Comments) Value History Moderately Suspicious 1 ECG Nonspecific Repolarizatio 1 Age >45 - < 65 1 Risk Factors >3 Risk Factors or Hx CAD 2 Troponin < Normal Limit 0 Total 5 Risk Factors: Risk Factors: DM, Current or recent (<one month) smoker, HTN, HLP, family history of CAD, obesity. Risk Scores: Risk Factors: DM, Current or recent (<one month) smoker, HTN, HLP, family history of CAD, obesity. Course & Med Decision Making Course & Med Decision Making Discussed with the patient all findings and diagnostic testing. I disclose there was no emergent or surgical findings based on presentation today; however, I reviewed heart score with patient and discussed high risk nature for adverse cardiac event and recommended admission. Patient deferred. I disclose that based on continuous telemetry today there were no abnormal rhythm such as atrial fibrillation or other tachyarrhythmias or causes for patient's palpitations. I again recommended admission for consideration of cardiology consultation and potential need for recorder device etc, patient continued to defer and wanted to do this in the outpatient setting. As such, I stressed need for close outpatient follow-up to review today's ER visit. Strict return precautions were also discussed at length with good understanding by patient and who is at bedside. Patient voiced understanding and agreement with the plan. Patient knows to come back for repeat evaluation if concerning signs or symptoms present prior to outpatient follow-up. Hemodynamically stable, ambulatory and well-appearing at time of disposition. Critical Care Time This patient required critical care. Due to the fact that the patient required a significant amount of one on one physician - patient contact time, ordering and review of studies, arranging urgent treatment with development of a management plan, evaluation of patients response to treatment with frequent reassessments, and discussions with other providers this patient required 35 minutes of critical care time. Critical care time was indicated due to the inherent instability and/or potential for instability in this patient. The critical care time that is allocated to this patient is above and beyond any time spent on any other billable procedures performed on this patient. Dragon Disclaimer Dragon Disclaimer This electronic medical record was generated, in whole or in part, using a voice recognition dictation system. Departure Departure: Impression: Primary Impression: Intermittent palpitations Additional Impressions: Type 2 diabetes mellitus HTN (hypertension) Disposition: HOME / SELF CARE / HOMELESS Condition: STABLE Referrals: KANWAL VIZCAINO DO (PCP) BONNY PENG MD Patient Instructions: Palpitations Additional Instructions: You were seen for palpitations. Your workup did not show any acute abnormalities today, but does not indicate that you do not have underlying cardiovascular disease. It was recommended that you stay for cardiac observat ion but you deferred. As such, you do need to follow up with your primary doctor discussed need for close cardiology consultation in outpatient setting as he would likely benefit from repeat provocative testing. I have attached Dr. Peng's information to this discharge instruction packet for which she should contact and discuss availability for close outpatient follow-up. In the interim, you should return to the ED if you develop worsening chest pain, shortness of breath, fever, abnormal sweating, leg swelling, or any other new or concerning symptoms. It was a pleasure to take care of you and I wish you the best going forward Problem Qualifiers WATSON MOORE DO Jul 26, 2020 14:59
[2020-07-26 15:20] LABS: BASO % 1 % (0-3); EOS # 0.1 x10^3/uL (0.0-0.7); EOS % 2 % (0-3); HEMATOCRIT 37.7 % (36.0-47.0); HEMOGLOBIN 12.7 g/dL (12.0-15.5); LYMPH # 1.4 x10^3/uL (1.0-4.8); LYMPH % 18 % (24-48); MEAN CORPUSCULAR HEMOGLOBIN 29 pg (25-35); MEAN CORPUSCULAR HGB CONC 34 g/dL (31-37); MEAN CORPUSCULAR VOLUME 86 fL (79-100); MONO # 0.5 x10^3/uL (0.0-1.1); MONO % 7 % (0-9); NEUT # 5.7 x10^3uL (1.8-7.7); NEUT % 72 % (31-73); PLATELET COUNT 257 x10^3/uL (140-400); RED BLOOD COUNT 4.37 x10^6/uL (3.50-5.40); RED CELL DISTRIBUTION WIDTH 15.1 % (11.5-14.5); WHITE BLOOD COUNT 7.8 x10^3/uL (4.0-11.0)
--- NOTE | 2020-07-26 15:25 | RAD ---
XR CHEST 1V 07/26/2020 3:08 PM INDICATION: Palpitations COMPARISON: None available TECHNIQUE: Portable frontal view of the chest is provided. FINDINGS: The cardiomediastinal silhouette is within normal limits. Lungs are clear. There are no significant pleural effusions. There is no pulmonary vascular congestion. No pneumothora x. No suspicious osseous abnormality. Anterior cervical discectomy and fusion hardware identified within the lower cervical spine. IMPRESSION: There is no acute cardiopulmonary process. Electronically signed by: Natasha Lunsford MD (07/26/2020 3:22 PM) [id number]
[2020-07-26 15:30] LABS: CALCIUM 8.9 mg/dL (8.5-10.1); GFR 56.2
[2020-07-26 15:43] LABS: ALBUMIN 3.6 g/dL (3.4-5.0); ALBUMIN/GLOBULIN RATIO 0.9 (1.0-1.7); MAGNESIUM 2.1 mg/dL (1.8-2.4); TOTAL BILIRUBIN 0.3 mg/dL (0.2-1.0); TOTAL PROTEIN 7.4 g/dL (6.4-8.2)
--- NOTE | 2020-07-26 16:03 | EKG ---
[address] [address] Test Date: 2020-07-26 Test Time: 15:01:56 Pat Name: VLAD HART Department: Room: Gender: F Digital Publishing Specialist: JEFERSON : 1960 Requested By: WATSON MOORE Order Number: [id number] Reading MD: Measurements Intervals [place] Rate: 95 P: 51 ME: 158 QRS: -47 QRSD: 98 T: 62 QT: 348 QTc: 441 Interpretive Statements SINUS RHYTHM ABNORMAL LEFT AXIS DEVIATION R-S TRANSITION ZONE IN V LEADS DISPLACED TO THE LEFT LEFT ANTERIOR FASCICULAR BLOCK CONSIDER LEFT VENTRICULAR HYPERTROPHY QRS(T) CONTOUR ABNORMALITY CONSIDER ANTEROLATERAL MYOCARDIAL DAMAGE ABNORMAL ECG RI6.02 No previous ECG available for comparison
--- NOTE | 2020-07-26 16:51 | EKG ---
[address] [address] Test Date: 2020-07-26 Test Time: 16:12:40 Pat Name: VLAD HART Department: Room: Gender: F Pattern Filer: JEFERSON : 1960 Requested By: WATSON MOORE Order Number: [id number] Reading MD: Measurements Intervals [place] Rate: 79 P: 44 VA: 168 QRS: -46 QRSD: 96 T: 51 QT: 380 QTc: 437 Interpretive Statements SINUS RHYTHM ABNORMAL LEFT AXIS DEVIATION R-S TRANSITION ZONE IN V LEADS DISPLACED TO THE LEFT LEFT ANTERIOR FASCICULAR BLOCK CONSIDER LEFT VENTRICULAR HYPERTROPHY QRS(T) CONTOUR ABNORMALITY CONSIDER ANTEROLATERAL MYOCARDIAL DAMAGE ABNORMAL ECG RI6.02 No previous ECG available for comparison
== END 2020-07-26 16:50 | disposition home or self-care (01) ==
LOC: ER 14:57
DX: R00.2 Palpitations (principal); E11.9 Type 2 diabetes mellitus without complications; I10 Essential (primary) hypertension; F41.9 Anxiety disorder, unspecified; M19.90 Unspecified osteoarthritis, unspecified site; Z88.5 Allergy status to narcotic agent
CPT/HCPCS: 36415; 71045; 80053; 83735; 83880; 84484; 85025; 93005; 99285

== ENCOUNTER → 2020-10-24 | Outpatient (CLI) | payer OTHER ==
--- NOTE | 2020-10-25 10:37 | CARD ---
MR#: [id number] Date of Study: 10/24/2020 Ordering Physician: JAMI CASTRO, Referring Physician: JAMI CASTRO, Tech: Darlene Janstoney, [facility] APPROVED REPORT EXAM: Two-dimensional and M-mode echocardiogram with Doppler and color Doppler. Other Information Quality : AverageHR: 88bpm INDICATION Murmur RISK FACTORS Hypertension Hyperlipidemia Diabetes 2D DIMENSIONS RVDd2.5 (2.9-3.5cm)Left Atrium(2D)3.5 (1.6-4.0cm) IVSd1.1 (0.7-1.1cm)Aortic Root(2D)3.3 (2.0-3.7cm) LVDd5.7 (3.9-5.9cm)LVOT Diameter2.1 (1.8-2.4cm) PWd1.0 (0.7-1.1cm)LVDs3.3 (2.5-4.0cm) FS (%) 41.8 %SV113.4 ml LVEF(%)72.1 (>50%) Aortic Valve AoV Peak Aubrey.120.1cm/sAoV VTI27.4cm AO Peak GR.5.8mmHgLVOT Peak Aubrey.110.5cm/s LVOT VTI 24.12cmAO Mean GR.3mmHg JUMANA (VMAX)3.25xo2HCO (VTI)3.02cm2 Mitral Valve MV E Znlnjldx279.4cm/sMV DECEL VUFJ131ad MV A Bzkzdajb432.4cm/sE/A Ratio1.0 Pulmonary Valve PV Peak Mftakysi02.5cm/sPV Peak Grad.3mmHg Tricuspid Valve TR P. Othfejts534rv/sRAP RNEGXLPI6juQm TR Peak Gr.12rdRoJUHP43kxWy LEFT VENTRICLE The left ventricle is normal size. There is borderline to mild concentric left ventricular hypertroph y. The left ventricular systolic function is normal. The Ejection Fraction is 55%. There is normal LV segmental wall motion. RIGHT VENTRICLE The right ventricle is normal size. There is normal right ventricular wall thickness. The right ventr icular systolic function is normal. ATRIA The left atrium size is normal. The right atrium size is normal. The interatrial septum is intact wit h no evidence for an atrial septal defect or patent foramen ovale as noted on 2-D or Doppler imaging. AORTIC VALVE The aortic valve is normal in structure and function. Doppler and Color Flow revealed no significant aortic regurgitation. There is no significant aortic valvular stenosis. Calculated aortic valve area is 3.0 cm2 with maximum pressure gradient of 6 mmHg and mean pressure gradient of 4 mmHg. MITRAL VALVE The mitral valve is normal in structure and function. There is no evidence of mitral valve prolapse. There is no mitral valve stenosis. Doppler and Color-flow revealed trace to mild mitral regurgitation . TRICUSPID VALVE The tricuspid valve is normal in structure and function. Doppler and Color Flow revealed trace tricus pid regurgitation with an estimated PAP of 34 mmHg. There is no tricuspid valve stenosis. PULMONIC VALVE The pulmonic valve is not well visualized. Doppler and Color Flow revealed trace pulmonic valvular re gurgitation. GREAT VESSELS The aortic root is normal in size. The ascending aorta is Mildly dilated measuring 3.4 cm. The IVC is dilated. PERICARDIAL EFFUSION There is no evidence of significant pericardial effusion. Critical Notification Critical Value: No <Conclusion> The left ventricular systolic function is normal. The Ejection Fraction is 55%. There is normal LV segmental wall motion. Trace to mild mitral regurgitation. Trace tricuspid regurgitation with an estimated PAP of 34 mmHg. There is no evidence of significant pericardial effusion. Signed by : Edwin Garcia, Electronically Approved : 10/25/2020 10:37:27
== END ==
LOC: ECHO 14:45
PROVIDERS: ATTEND Internal Medicine Cardiovascular Disease
DX: I34.0 Nonrheumatic mitral (valve) insufficiency (principal); I51.7 Cardiomegaly; R01.1 Cardiac murmur, unspecified
CPT/HCPCS: 93306

== ENCOUNTER → 2021-05-22 | Outpatient (CLI) | payer OTHER ==
--- NOTE | 2021-05-22 13:07 | RAD ---
XR HAND_LEFT 3 VIEWS, XR LT WRIST 3VIEWS DATE: 05/22/2021 12:34 PM INDICATION: COOLER FELL ON HAND TODAY, pain COMPARISON: None. FINDINGS: Bones: There is no evidence of acute fracture or dislocation. Joints: The joint spaces are normal. Miscellaneous: Atherosclerotic vascular calcifications. IMPRESSION: No evidence of acute fracture. Electronically signed by: Kaushik Silveira MD (05/22/2021 1:04 PM) [id number]
== END ==
LOC: PMG 12:19
PROVIDERS: ATTEND Nurse Practitioner Family
DX: S60.512A Abrasion of left hand, initial encounter (principal); I70.90 Unspecified atherosclerosis; W20.8XXA Other cause of strike by thrown, projected or falling object, initial encounter; Y93.89 Activity, other specified; Y92.89 Other specified places as the place of occurrence of the external cause; Y99.8 Other external cause status
CPT/HCPCS: 73110; 73130